=== PATIENT | male | born 1995 | race Caucasian/White ===

== ENCOUNTER 2020-09-18 19:22 | Emergency (ER) | payer SELFPAY ==
--- NOTE | 2020-09-18 19:33 | ER ---
Nurse's Notes [facility] Name: Juan Looney Age: 25 yrs Sex: Male : 1995 Arrival Date: 09/18/2020 Time: 19:24 Bed Waiting Private MD: Diagnosis: Historical: - Allergies: 09/18 19:32 No Known Allergies; ll1 ED Course: 19:24 Patient arrived in ED. cl3 19:31 Arm band placed on. ll1 Administered Medications: No medications were administered Outcome: 19:32 Patient left the ED. ll1 Signatures: Aftab Mckeon cl3 Alex Mckeon, RN RN ll1
== END 2020-09-18 19:32 | disposition left against medical advice (07) ==
LOC: ER 19:22
DX: Z02.9 Encounter for administrative examinations, unspecified (principal)